=== PATIENT | female | born 1930 | race Caucasian/White ===

== ENCOUNTER 2016-07-01 14:41 | Outpatient (CLI) | payer MEDICARE ==
[2016-07-01 15:12] LABS: Anion Gap 14 mmol/L (10-20); BUN (Urea Nitrogen) 30 mg/dL (9.8-20.1); Calc. Creatinine Clearance 0 mL/min (70-130); Calcium 9.5 mg/dL (7.8-10.44); Carbon Dioxide 28 mmol/L (23-31); Chloride 101 mmol/L (98-107); Estimated GFR-MDRD 24; Glucose 94 mg/dL (83-110); Potassium 4.2 mmol/L (3.5-5.1); Sodium 139 mmol/L (136-145)
== END 2016-07-01 14:42 | disposition home or self-care (01) ==
LOC: MADLABBHPM 14:41
PROVIDERS: ATTEND Family Medicine
DX: N28.9 Disorder of kidney and ureter, unspecified (principal)
CPT/HCPCS: 36415; 80048; 93005; 93010

== ENCOUNTER 2016-07-20 10:18 | Outpatient (CLI) | payer MEDICARE ==
[2016-07-20 10:49] LABS: Anion Gap 13 mmol/L (10-20); BUN (Urea Nitrogen) 25 mg/dL (9.8-20.1); Calc. Creatinine Clearance 0 mL/min (70-130); Calcium 9.1 mg/dL (7.8-10.44); Carbon Dioxide 26 mmol/L (23-31); Chloride 106 mmol/L (98-107); Estimated GFR-MDRD 42; Glucose 86 mg/dL (83-110); Potassium 3.9 mmol/L (3.5-5.1); Sodium 141 mmol/L (136-145)
== END 2016-07-20 10:19 | disposition home or self-care (01) ==
LOC: MADLABBHPM 10:18
PROVIDERS: ATTEND Family Medicine
DX: N28.9 Disorder of kidney and ureter, unspecified (principal)
CPT/HCPCS: 36415; 80048

== ENCOUNTER 2017-06-14 11:42 | Outpatient (CLI) | payer MEDICARE | END 2017-06-14 11:43 | disposition home or self-care (01) | LOC: MADLAB 11:42 | PROVIDERS: ATTEND Specialist | DX: C18.4 Malignant neoplasm of transverse colon (principal) | CPT/HCPCS: 36415; 82378 ==

== ENCOUNTER 2017-07-06 17:14 | Inpatient (IN) | payer MEDICARE ==
[2017-07-06] MEDS ORDERED: HYDROcodone/Acetaminophen 5/325 mg Tablet PO PRN (18:22)
[2017-07-06] MEDS: Mirtazapine 15 MG TAB PO SCH (20:48)
[2017-07-06] MEDS: Ferrous Sulfate 325 MG TAB PO SCH (20:48)
[2017-07-06] MEDS: Apixaban 5 MG TAB PO SCH (20:48)
[2017-07-06] MEDS: Acetaminophen 325 MG TAB PO PRN (20:49)
[2017-07-07] MEDS ORDERED: FLU VACC TS2017-18 (>65YR) 0.5 ML SYRINGE IM ONE (09:00)
[2017-07-07] MEDS: Apixaban 5 MG TAB PO SCH ×2 (09:30→20:05)
[2017-07-07] MEDS: Amlodipine 5 MG TAB PO SCH (09:31)
[2017-07-07] MEDS: Amiodarone 200 MG TAB PO SCH (09:31)
[2017-07-07] MEDS: Fenofibrate Nanocrystallized 145 MG TAB PO SCH (09:31)
[2017-07-07] MEDS: Ferrous Sulfate 325 MG TAB PO SCH ×2 (09:31→20:09)
[2017-07-07] MEDS: Acetaminophen 325 MG TAB PO PRN ×2 (09:36→20:06)
[2017-07-07] MEDS ORDERED: Sodium Chloride Irrig Solution 250 ML BOT ONE (10:03)
--- NOTE | 2017-07-07 11:12 | HP ---
DATE OF ADMISSION: 07/07/2017 ATTENDING PHYSICIAN: Radha Sales D.O. REASON FOR ADMISSION: Physical deconditioning. HISTORY OF PRESENT ILLNESS: This is a pleasant 87-year-old female with history of hypertension, hyperlipidemia, depression, and most recently diagnosed stage 3 adenocarcinoma of the colon that presents to [facility] for planned physical therapy and occupational therapy, status post prolonged hospitalization for her colon cancer. The patient was initially admitted to [facility] on 06/20/[address] Curiel for colectomy after colonoscopy revealed large mass. Patient underwent surgery on the same day of admission. She subsequently suffered numerous post-operative complications. Was found to have peritonitis 2/2 anastamosis leak and went on for repair with abdominal washout and drain placement. This was done under emergent circumstances given the patient's hemodynamic compromise at that time. In addition to her hemodynamic compromise, she was also found to be in acute renal failure with hyperkalemia. Central line was placed intraoperatively , and patient was transferred to the Intensive Care Unit thereafter. She was subsequently found to have traumatic pneumothorax, and Dr. Aldridge was consulted for chest tube placement, which was performed on 06/25/2017. Wound VAC had to be placed to the right upper abdomen where her opening was from the abdominal washout. Over the next few days, patient was able to be extubated and a chest tube was able to be removed. The patient was treated with broad- spectrum IV antibiotics for the peritonitis until bacterial cultures resulted as both yeast as well as Haemophilus parainfluenza. She has completed the recommended course of zosyn and diflucan. From there, the patient stabilized further with return of normal renal function, and she was able to be transferred to the regular medical floor for continued postoperative care and wound care. Additional complication occurred approximately a week ago when the patient went into afib RVR. Dr. Martins was consulted and placed the patient on an amiodarone drip, and the patient was transferred to the telemetry floor. After being on the amiodarone, the patient did spontaneously convert to sinus rhythm, and after discussion with her surgeon, a decision was made to place the patient on anticoagulation with Eliquis. Since approximately Tuesday, the patient has significantly stabilized from a renal and pulmonary standpoint with the exception of persistent pleural effusions on her most recent chest x-ray that was done on 07/05/2017. The patient was cleared for discharge by the smoke tester, the company manager, the hair dryer, and her surgeon, Dr. Curiel , and therefore was transferred here today for planned physical therapy and occupational therapy. The patient was noted prior to transfer to be extremely deconditioned. She has only been ambulating with assistance within the room. She has also had a significant anemia and malnutrition given her above- mentioned complications. She did require TPN at one point, but was successfully weaned off of that over the last few days. Hematology/Oncology was also consulted prior to the patient's discharge, and they recommended IV iron for her persistent iron deficiency anemia as well as outpatient Oncology followup. They did not recommend any further chemoradiation at this time. She was diagnosed with stage 3 colon cancer with 4 positive lymph nodes, but no other obvious signs of metastasis. The patient today states she is very weak. She continues to be short of breath, but unchanged over the last few days. She is requiring 3 liters of oxygen and states she does get some improvement with the nebulized treatments. She is tolerating a diet, although her appetite continues to be decreased. She denies any pain at this time. She has not had any vomiting. She has had good output from her ostomy. Her [id number] is at bedside and assists with some of the history, although the patient is alert and oriented and able to answer questions herself. PAST MEDICAL HISTORY: 1. Stage 3 colon cancer, status post colectomy with above-mentioned complications (anastomosis leak, peritonitis, surgical wound, pneumothorax, respiratory failure, renal failure, anemia, atrial fibrillation) 2. Hypertension. 3. Atrial fibrillation diagnosed during hospitalization 4. Hyperlipidemia. 5. Depression. 6. Iron deficiency anemia. PAST SURGICAL HISTORY: 1. Hemicolectomy with ileostomy 2. Anastomosis repair and abdominal washout. 3. Hysterectomy. 4. Cholecystectomy. 5. Cataract surgery. SOCIAL HISTORY: The patient was previously living independently with her at home, whom she helps take care of. She does not drink alcohol or abuse tobacco. ALLERGIES TO MEDICATIONS: SUCCINYLCHOLINE with history of malignant hyperthermia. MEDICATIONS: Upon transfer: 1. Acetaminophen 650 mg every 6 hours as needed. 2. Hydrocodone 5/325 mg 1-2 tabs as needed for pain. 3. DuoNeb every 6 hours as needed. 4. Amiodarone 200 mg daily. 5. Amlodipine 5 mg once daily. 6. Eliquis 2.5 mg twice daily. 7. TriCor 145 mg once daily. 8. Ferrous sulfate 325 mg twice daily. 9. Remeron 30 mg once nightly. 10. Zofran 4 mg every 6 hours as needed. 11. Protonix 40 mg once daily. 12. Zoloft 100 mg once nightly. REVIEW OF SYSTEMS: As mentioned in the HPI. Positive for weakness, fatigue, and poor appetite. Otherwise, negative. PHYSICAL EXAMINATION: VITAL SIGNS: Upon exam this morning, temperature is 99.6 with T-max of 100.8, blood pressure is 166/70, heart rate is 90, respirations 20, oxygen saturation is 100% on 3 liters. GENERAL: She is alert and oriented x3 in no apparent distress. She has mild dyspnea at rest. She is cooperative and answering questions appropriately. HEENT: Pupils are equally round and reactive to light. Extraocular movements are intact. Sclerae are nonicteric. Oropharynx is mildly dry without any erythema or exudates. NECK: Supple. Negative for carotid bruits. Negative for lymphadenopathy or JVD. The patient does have a left bandage to her neck where her central line had been placed that was removed and wound was noted to be with good hemostasis. No significant bruising or swelling. CARDIOVASCULAR: Heart regular rate and rhythm with no murmurs. LUNGS: Poor effort, auscultation is clear to all lung bowen, somewhat diminished at bilateral bases. No wheezing, rales, or rhonchi. ABDOMEN: Soft, mildly tender diffusely, but nondistended, no rebound or guarding. She has good bowel sounds. She has an ostomy in the right lower quadrant that is draining greenish brown stool. She has a her right upper abdomen wound with 2 openings that has a good granulation tissue and no significant drainage has been photodocumented. She also has a left flank wound where her chest tube is placed that has [address] and has some scant serous drainage, but no erythema. EXTREMITIES: She is noted to be generally weak with some muscle atrophy, but no significant clubbing, cyanosis, or edema. NEUROLOGIC: No focal deficits. PSYCHIATRIC: Her mood is somewhat depressed, but otherwise appropriate. She is alert and oriented x3. LABORATORY DATA AND IMAGING: None to report at this time. ASSESSMENT AND PLAN: This is an 87-year-old female with previous history of hypertension, hyperlipidemia, depression, and recently diagnosed stage 3 colon cancer and has undergone hemicolectomy with numerous complications and prolonged hospitalization. 1. Physical deconditioning. The patient will be seen by physical therapy and occupational therapy with goal of regaining her strength so she can return back to independent living. 2. Colon cancer, stage 3. She is status post hemicolectomy, which was complicated by postoperative anastomotic leak and peritonitis. The patient has had numerous complications, but does appear to be slowly improving. She has a continued wound in her right upper abdomen. A wound VAC will be placed tomorrow. She seems to have cleared the infection in this area after a prolonged course of antibiotics. Her surgeon has mentioned that she can have reversal of her ileostomy in the future, but only when she is up and ambulatory and only if the ileostomy is found to be bothersome. Routine wound care will be continued to the stoma as well. She is not a candidate for any chemoradiation therapy at this time, but will be seen on an outpatient basis by Hematology/Oncology. 3. Iron deficiency anemia. This has been somewhat chronic for the patient even before her surgery, which is what led to her diagnosis of colon cancer. She has received IV iron prior to transfer. Her hemoglobin is at 7. At this time, we will check a.m. labs to see where she is at and only transfuse if she is symptomatic and less than 7. She has been placed on oral iron supplement therapy. 4. History of respiratory failure, pneumothorax, and persistent pleural effusions. The patient will be continued on oxygen as needed as well as breathing treatments. She will need to be monitored closely and will repeat chest x-ray in the morning. Incentive spirometer has been placed to bedside and she has been encouraged to ambulate with assistance. 5. Atrial fibrillation. This is a new diagnosis for patient. She was seen by Dr. Martins last weekend and started on amiodarone. She was deemed to be a candidate for anticoagulation and was started on Eliquis subsequently as well. She is in normal sinus rhythm at this time. We will continue her current management. 6. Hypertension. We will continue the patient on her current blood pressure medication. 7. Depression. We will continue the patient on her current medications. 8. Malnutrition and hypoalbuminemia. Dietary consult has been placed. The patient will likely benefit from protein supplement and encouraged nutritional support. 9. Deep venous thrombosis prophylaxis. The patient is on Eliquis. 10. Gastrointestinal prophylaxis. The patient is on Protonix. 11. Code status. I had a discussion with patient this morning and she does wish to be FULL CODE at this time, but will be discussing this with her family members in the near future. DISPOSITION: The patient is quite ill. She is at advanced age and has had numerous complications over the last 2 weeks. She has a very guarded prognosis at this time, but we will continue to manage her medical conditions as best possible in an effort to get her back home to independent living. COOPER
[2017-07-07] MEDS: Mirtazapine 15 MG TAB PO SCH (20:07)
[2017-07-08 05:58] LABS: Anion Gap 10 mmol/L (10-20); BUN (Urea Nitrogen) 12 mg/dL (9.8-20.1); Calc. Creatinine Clearance 86 mL/min (70-130); Calcium 8.4 mg/dL (7.8-10.44); Carbon Dioxide 25 mmol/L (23-31); Chloride 109 mmol/L (98-107); Estimated GFR-MDRD 80; Glucose 91 mg/dL (83-110); Potassium 3.7 mmol/L (3.5-5.1); Sodium 140 mmol/L (136-145)
[2017-07-08 06:23] LABS: #Basophils 0.1 thou/uL (0.0-0.2); #Eosinphils 0.2 thou/uL (0.0-0.7); #Lymphocytes 1.2 thou/uL (1.20-3.40); #Monocytes 0.4 thou/uL (0.11-0.59); #Neutrophils 5.7 thou/uL (1.40-6.50); %Eosinophils 2.9 % (0.0-10.0); %Lymphocytes 15.7 % (21.0-51.0); %Monocytes 5.1 % (0.0-10.0); %Neutrophils 75.3 % (42.0-75.0); Hemoglobin 7.1 g/dL (12.0-16.0); Mean Corpuscular HGB CONC 30.8 g/dL (32.0-36.0); Mean Corpuscular Hemoglobin 26.7 pg (27.0-31.0); Mean Corpuscular Volume 86.8 fl (81.0-99.0); Mean Platelet Volume 6.8 fL (7.4-10.4); Platelet Count 354 thou/uL (130-400); RBC Distribution Width 23.3 % (11.5-14.5); Red Blood Cell (RBC) Count 2.66 mill/uL (4.20-5.40); White Blood Cell (WBC) Count 7.5 thou/uL (4.8-10.8)
[2017-07-08 06:35] LABS: Anisocytosis SLIGHT = 6-15 cells (100X) (0-5/hpf)
[2017-07-08 06:36] LABS: PLT Morphology Comment Appears Adequate; Poikilocytosis SLIGHT = 6-15 cells (100X) (0-5/hpf)
--- NOTE | 2017-07-08 08:07 | RAD ---
AP VIEW CHEST: Date: 07/08/17 INDICATION: Pleural effusion. COMPARISON: Prior exam dated 07/05/17. FINDINGS: The pulmonary vascular congestion and central edema pattern have improved. Bilateral pleural effusion s have decreased in size, now small. There is bibasilar air space opacity which may reflect atelectas is or pneumonia. No pneumothorax is evident. Vascular structures appear similar. IMPRESSION: 1. Improving CHF. 2. Persistent bibasilar opacities may reflect atelectasis or pneumonia. Continued follow-up is recom mended. POS: [facility]
[2017-07-08] MEDS: Apixaban 5 MG TAB PO SCH ×2 (09:17→20:35)
[2017-07-08] MEDS: Amlodipine 5 MG TAB PO SCH (09:18)
[2017-07-08] MEDS: Amiodarone 200 MG TAB PO SCH (09:19)
[2017-07-08] MEDS: Fenofibrate Nanocrystallized 145 MG TAB PO SCH (09:19)
[2017-07-08] MEDS: Ferrous Sulfate 325 MG TAB PO SCH ×2 (09:19→20:39)
[2017-07-08] MEDS: HYDROcodone/Acetaminophen 5/325 mg Tablet PO PRN ×2 (12:43→18:08)
[2017-07-08] MEDS: Mirtazapine 15 MG TAB PO SCH (20:36)
[2017-07-09] MEDS: Amlodipine 5 MG TAB PO SCH (09:23)
[2017-07-09] MEDS: Apixaban 5 MG TAB PO SCH ×2 (09:24→20:44)
[2017-07-09] MEDS: Amiodarone 200 MG TAB PO SCH (09:24)
[2017-07-09] MEDS: Fenofibrate Nanocrystallized 145 MG TAB PO SCH (09:25)
[2017-07-09] MEDS: Ferrous Sulfate 325 MG TAB PO SCH ×2 (09:26→20:43)
[2017-07-09] MEDS: Mirtazapine 15 MG TAB PO SCH (21:09)
[2017-07-10] MEDS: Amlodipine 5 MG TAB PO SCH (09:14)
[2017-07-10] MEDS: Fenofibrate Nanocrystallized 145 MG TAB PO SCH (09:15)
[2017-07-10] MEDS: Amiodarone 200 MG TAB PO SCH (09:15)
[2017-07-10] MEDS: Apixaban 5 MG TAB PO SCH ×2 (09:15→21:00)
[2017-07-10] MEDS: Ferrous Sulfate 325 MG TAB PO SCH ×2 (09:16→21:01)
[2017-07-10] MEDS: Mirtazapine 15 MG TAB PO SCH (21:00)
[2017-07-11] MEDS: Fenofibrate Nanocrystallized 145 MG TAB PO SCH (09:42)
[2017-07-11] MEDS: Amiodarone 200 MG TAB PO SCH (09:43)
[2017-07-11] MEDS: Ferrous Sulfate 325 MG TAB PO SCH ×2 (09:43→21:10)
[2017-07-11] MEDS: Apixaban 5 MG TAB PO SCH ×2 (09:43→21:04)
[2017-07-11] MEDS: Amlodipine 5 MG TAB PO SCH (09:43)
[2017-07-11] MEDS: HYDROcodone/Acetaminophen 5/325 mg Tablet PO PRN (09:44)
[2017-07-11] MEDS: Acetaminophen 325 MG TAB PO PRN (21:05)
[2017-07-11] MEDS: Mirtazapine 15 MG TAB PO SCH (21:06)
[2017-07-12] MEDS: Acetaminophen 325 MG TAB PO PRN ×2 (04:13→19:58)
[2017-07-12] MEDS: Ferrous Sulfate 325 MG TAB PO SCH ×2 (08:29→19:58)
[2017-07-12] MEDS: Amiodarone 200 MG TAB PO SCH (08:29)
[2017-07-12] MEDS: Fenofibrate Nanocrystallized 145 MG TAB PO SCH (08:29)
[2017-07-12] MEDS: Amlodipine 5 MG TAB PO SCH (08:29)
[2017-07-12] MEDS: Apixaban 5 MG TAB PO SCH ×2 (08:29→20:01)
[2017-07-12] MEDS: Mirtazapine 15 MG TAB PO SCH (20:00)
[2017-07-13] MEDS: Amiodarone 200 MG TAB PO SCH (08:44)
[2017-07-13] MEDS: Apixaban 5 MG TAB PO SCH ×2 (08:44→20:27)
[2017-07-13] MEDS: Fenofibrate Nanocrystallized 145 MG TAB PO SCH (08:44)
[2017-07-13] MEDS: Amlodipine 5 MG TAB PO SCH (08:45)
[2017-07-13] MEDS: Ferrous Sulfate 325 MG TAB PO SCH ×2 (08:45→20:30)
[2017-07-13] MEDS: Acetaminophen 325 MG TAB PO PRN (20:26)
[2017-07-13] MEDS: Mirtazapine 15 MG TAB PO SCH (20:29)
[2017-07-14 05:17] LABS: Hemoglobin 7.8 g/dL (12.0-16.0); Platelet Count 423 thou/uL (130-400)
[2017-07-14] MEDS: Apixaban 5 MG TAB PO SCH ×2 (09:56→20:17)
[2017-07-14] MEDS: Fenofibrate Nanocrystallized 145 MG TAB PO SCH (09:56)
[2017-07-14] MEDS: Ferrous Sulfate 325 MG TAB PO SCH ×2 (09:57→20:18)
[2017-07-14] MEDS: Amiodarone 200 MG TAB PO SCH (09:57)
[2017-07-14] MEDS: Amlodipine 5 MG TAB PO SCH (09:57)
[2017-07-14] MEDS: Ondansetron ODT 4 MG TAB PO PRN (12:00)
[2017-07-14] MEDS: Mirtazapine 15 MG TAB PO SCH (20:17)
[2017-07-15] MEDS: Ferrous Sulfate 325 MG TAB PO SCH ×2 (09:14→17:33)
[2017-07-15] MEDS: Apixaban 5 MG TAB PO SCH ×2 (09:14→20:41)
[2017-07-15] MEDS: Amiodarone 200 MG TAB PO SCH (09:15)
[2017-07-15] MEDS: Amlodipine 5 MG TAB PO SCH (09:15)
[2017-07-15] MEDS: Fenofibrate Nanocrystallized 145 MG TAB PO SCH (09:15)
[2017-07-15] MEDS: Mirtazapine 15 MG TAB PO SCH (20:41)
[2017-07-16] MEDS: Amiodarone 200 MG TAB PO SCH (09:09)
[2017-07-16] MEDS: Amlodipine 5 MG TAB PO SCH (09:09)
[2017-07-16] MEDS: Apixaban 5 MG TAB PO SCH ×2 (09:09→20:52)
[2017-07-16] MEDS: Ferrous Sulfate 325 MG TAB PO SCH ×2 (09:09→17:43)
[2017-07-16] MEDS: Fenofibrate Nanocrystallized 145 MG TAB PO SCH (09:10)
[2017-07-16] MEDS: Mirtazapine 15 MG TAB PO SCH (20:51)
[2017-07-17] MEDS: Amlodipine 5 MG TAB PO SCH (08:29)
[2017-07-17] MEDS: Fenofibrate Nanocrystallized 145 MG TAB PO SCH (08:29)
[2017-07-17] MEDS: Ferrous Sulfate 325 MG TAB PO SCH ×2 (08:30→17:08)
[2017-07-17] MEDS: Apixaban 5 MG TAB PO SCH ×2 (08:30→20:21)
[2017-07-17] MEDS: Amiodarone 200 MG TAB PO SCH (08:31)
[2017-07-17] MEDS: Mirtazapine 15 MG TAB PO SCH (20:21)
[2017-07-18] MEDS: Ferrous Sulfate 325 MG TAB PO SCH ×2 (08:57→17:25)
[2017-07-18] MEDS: Apixaban 5 MG TAB PO SCH ×2 (08:57→20:23)
[2017-07-18] MEDS: Amiodarone 200 MG TAB PO SCH (08:58)
[2017-07-18] MEDS: Fenofibrate Nanocrystallized 145 MG TAB PO SCH (08:58)
[2017-07-18] MEDS: Amlodipine 5 MG TAB PO SCH (08:58)
[2017-07-18] MEDS: Mirtazapine 15 MG TAB PO SCH (20:23)
[2017-07-19] MEDS: Fenofibrate Nanocrystallized 145 MG TAB PO SCH (08:26)
[2017-07-19] MEDS: Apixaban 5 MG TAB PO SCH ×2 (08:26→20:14)
[2017-07-19] MEDS: Amiodarone 200 MG TAB PO SCH (08:27)
[2017-07-19] MEDS: Amlodipine 5 MG TAB PO SCH (08:27)
[2017-07-19] MEDS: Ferrous Sulfate 325 MG TAB PO SCH ×2 (08:27→17:17)
[2017-07-19] MEDS ORDERED: Nystatin Powder 15 GM BOT TOP PRN (19:28)
[2017-07-19] MEDS: Mirtazapine 15 MG TAB PO SCH (20:14)
[2017-07-19] MEDS: Acetaminophen 325 MG TAB PO PRN (21:52)
[2017-07-20] MEDS: Ferrous Sulfate 325 MG TAB PO SCH ×2 (08:49→17:03)
[2017-07-20] MEDS: Amiodarone 200 MG TAB PO SCH (08:49)
[2017-07-20] MEDS: Amlodipine 5 MG TAB PO SCH (08:49)
[2017-07-20] MEDS: Apixaban 5 MG TAB PO SCH ×2 (08:50→20:17)
[2017-07-20] MEDS: Fenofibrate Nanocrystallized 145 MG TAB PO SCH (08:50)
[2017-07-20] MEDS: Mirtazapine 15 MG TAB PO SCH (20:16)
[2017-07-21] MEDS: Amlodipine 5 MG TAB PO SCH (08:13)
[2017-07-21] MEDS: Fenofibrate Nanocrystallized 145 MG TAB PO SCH (08:14)
[2017-07-21] MEDS: Amiodarone 200 MG TAB PO SCH (08:14)
[2017-07-21] MEDS: Ferrous Sulfate 325 MG TAB PO SCH ×2 (08:15→17:09)
[2017-07-21] MEDS: Apixaban 5 MG TAB PO SCH ×2 (08:15→20:08)
[2017-07-21] MEDS: Mirtazapine 15 MG TAB PO SCH (20:10)
[2017-07-22] MEDS: Amiodarone 200 MG TAB PO SCH (08:03)
[2017-07-22] MEDS: Amlodipine 5 MG TAB PO SCH (08:03)
[2017-07-22] MEDS: Apixaban 5 MG TAB PO SCH ×2 (08:03→20:13)
[2017-07-22] MEDS: Ferrous Sulfate 325 MG TAB PO SCH ×2 (08:03→16:08)
[2017-07-22] MEDS: Fenofibrate Nanocrystallized 145 MG TAB PO SCH (08:03)
[2017-07-22] MEDS: Mirtazapine 15 MG TAB PO SCH (20:11)
[2017-07-23] MEDS: Fenofibrate Nanocrystallized 145 MG TAB PO SCH (08:40)
[2017-07-23] MEDS: Amiodarone 200 MG TAB PO SCH (08:40)
[2017-07-23] MEDS: Ferrous Sulfate 325 MG TAB PO SCH ×2 (08:41→17:17)
[2017-07-23] MEDS: Apixaban 5 MG TAB PO SCH ×2 (08:41→20:49)
[2017-07-23] MEDS: Amlodipine 5 MG TAB PO SCH (08:41)
[2017-07-23] MEDS: Mirtazapine 15 MG TAB PO SCH (20:50)
[2017-07-24] MEDS: Fenofibrate Nanocrystallized 145 MG TAB PO SCH (09:02)
[2017-07-24] MEDS: Amiodarone 200 MG TAB PO SCH (09:02)
[2017-07-24] MEDS: Amlodipine 5 MG TAB PO SCH (09:02)
[2017-07-24] MEDS: Apixaban 5 MG TAB PO SCH ×2 (09:02→20:35)
[2017-07-24] MEDS: Ferrous Sulfate 325 MG TAB PO SCH ×2 (09:02→17:06)
[2017-07-24] MEDS: Acetaminophen 325 MG TAB PO PRN (13:08)
[2017-07-24] MEDS: Mirtazapine 15 MG TAB PO SCH (20:35)
[2017-07-25] MEDS: Amlodipine 5 MG TAB PO SCH (08:33)
[2017-07-25] MEDS: Ferrous Sulfate 325 MG TAB PO SCH ×2 (08:33→17:30)
[2017-07-25] MEDS: Amiodarone 200 MG TAB PO SCH (08:33)
[2017-07-25] MEDS: Fenofibrate Nanocrystallized 145 MG TAB PO SCH (08:34)
[2017-07-25] MEDS: Apixaban 5 MG TAB PO SCH ×2 (08:34→20:37)
[2017-07-25] MEDS: Mirtazapine 15 MG TAB PO SCH (20:37)
[2017-07-26 06:01] LABS: ALT (SGPT) Less than 7 U/L (8-55); AST (SGOT) 12 U/L (5-34); Albumin 2.5 g/dL (3.4-4.8); Alkaline Phosphatase 70 U/L (40-150); Anion Gap 13 mmol/L (10-20); BUN (Urea Nitrogen) 16 mg/dL (9.8-20.1); Bilirubin, Total 0.2 mg/dL (0.2-1.2); Calc. Creatinine Clearance 46 mL/min (70-130); Calcium 9.1 mg/dL (7.8-10.44); Carbon Dioxide 21 mmol/L (23-31); Chloride 111 mmol/L (98-107); Estimated GFR-MDRD 48; Globulin 4.2 g/dL (2.4-3.5); Glucose 82 mg/dL (83-110); Potassium 4.5 mmol/L (3.5-5.1); Protein, Total 6.7 g/dL (6.0-8.3); Sodium 140 mmol/L (136-145)
[2017-07-26 06:02] LABS: #Basophils 0.2 thou/uL (0.0-0.2); #Eosinphils 0.2 thou/uL (0.0-0.7); #Lymphocytes 4.2 thou/uL (1.20-3.40); #Neutrophils 4.8 thou/uL (1.40-6.50); %Basophils 1.5 % (0.0-1.0); %Eosinophils 2.3 % (0.0-10.0); %Lymphocytes 40.5 % (21.0-51.0); %Monocytes 9.4 % (0.0-10.0); %Neutrophils 46.3 % (42.0-75.0); Hemoglobin 8.6 g/dL (12.0-16.0); Mean Corpuscular HGB CONC 30.7 g/dL (32.0-36.0); Mean Corpuscular Hemoglobin 26.7 pg (27.0-31.0); Mean Corpuscular Volume 87.1 fl (81.0-99.0); Mean Platelet Volume 6.1 fL (7.4-10.4); Platelet Count 470 thou/uL (130-400); RBC Distribution Width 20.3 % (11.5-14.5); Red Blood Cell (RBC) Count 3.24 mill/uL (4.20-5.40); White Blood Cell (WBC) Count 10.4 thou/uL (4.8-10.8)
[2017-07-26] MEDS: Ferrous Sulfate 325 MG TAB PO SCH ×2 (09:39→17:15)
[2017-07-26] MEDS: Amiodarone 200 MG TAB PO SCH (09:40)
[2017-07-26] MEDS: Apixaban 5 MG TAB PO SCH ×2 (09:40→19:59)
[2017-07-26] MEDS: Amlodipine 5 MG TAB PO SCH (09:40)
[2017-07-26] MEDS: Fenofibrate Nanocrystallized 145 MG TAB PO SCH (09:41)
[2017-07-26] MEDS: Ondansetron ODT 4 MG TAB PO PRN (17:15)
[2017-07-26] MEDS: Mirtazapine 15 MG TAB PO SCH (19:59)
[2017-07-27] MEDS: Amlodipine 5 MG TAB PO SCH (08:06)
[2017-07-27] MEDS: Ferrous Sulfate 325 MG TAB PO SCH ×2 (08:06→17:19)
[2017-07-27] MEDS: Fenofibrate Nanocrystallized 145 MG TAB PO SCH (08:07)
[2017-07-27] MEDS: Apixaban 5 MG TAB PO SCH ×2 (08:07→20:40)
[2017-07-27] MEDS: Amiodarone 200 MG TAB PO SCH (08:07)
[2017-07-27] MEDS: Mirtazapine 15 MG TAB PO SCH (20:40)
[2017-07-28] MEDS: Amiodarone 200 MG TAB PO SCH (09:06)
[2017-07-28] MEDS: Amlodipine 5 MG TAB PO SCH (09:06)
[2017-07-28] MEDS: Apixaban 5 MG TAB PO SCH ×2 (09:06→21:37)
[2017-07-28] MEDS: Fenofibrate Nanocrystallized 145 MG TAB PO SCH (09:06)
[2017-07-28] MEDS: Ferrous Sulfate 325 MG TAB PO SCH ×2 (09:07→17:14)
[2017-07-28] MEDS: Mirtazapine 15 MG TAB PO SCH (21:37)
[2017-07-29] MEDS: Ferrous Sulfate 325 MG TAB PO SCH ×2 (09:15→17:06)
[2017-07-29] MEDS: Apixaban 5 MG TAB PO SCH ×2 (09:15→21:54)
[2017-07-29] MEDS: Fenofibrate Nanocrystallized 145 MG TAB PO SCH (09:15)
[2017-07-29] MEDS: Amlodipine 5 MG TAB PO SCH (09:16)
[2017-07-29] MEDS: Amiodarone 200 MG TAB PO SCH (09:16)
[2017-07-29] MEDS: Mirtazapine 15 MG TAB PO SCH (21:55)
[2017-07-30] MEDS: Fenofibrate Nanocrystallized 145 MG TAB PO SCH (09:28)
[2017-07-30] MEDS: Amlodipine 5 MG TAB PO SCH (09:28)
[2017-07-30] MEDS: Ferrous Sulfate 325 MG TAB PO SCH ×2 (09:28→17:32)
[2017-07-30] MEDS: Apixaban 5 MG TAB PO SCH ×2 (09:28→20:31)
[2017-07-30] MEDS: Amiodarone 200 MG TAB PO SCH (09:28)
[2017-07-30] MEDS: Mirtazapine 15 MG TAB PO SCH (20:31)
[2017-07-31] MEDS: Fenofibrate Nanocrystallized 145 MG TAB PO SCH (08:15)
[2017-07-31] MEDS: Amiodarone 200 MG TAB PO SCH (08:15)
[2017-07-31] MEDS: Amlodipine 5 MG TAB PO SCH (08:15)
[2017-07-31] MEDS: Apixaban 5 MG TAB PO SCH ×2 (08:16→20:34)
[2017-07-31] MEDS: Ferrous Sulfate 325 MG TAB PO SCH ×2 (08:16→17:09)
[2017-07-31] MEDS: Mirtazapine 15 MG TAB PO SCH (20:33)
[2017-08-01] MEDS: Ferrous Sulfate 325 MG TAB PO SCH ×2 (08:44→17:06)
[2017-08-01] MEDS: Amlodipine 5 MG TAB PO SCH (08:44)
[2017-08-01] MEDS: Apixaban 5 MG TAB PO SCH ×2 (08:44→20:25)
[2017-08-01] MEDS: Amiodarone 200 MG TAB PO SCH (08:44)
[2017-08-01] MEDS: Fenofibrate Nanocrystallized 145 MG TAB PO SCH (08:45)
[2017-08-01] MEDS: Mirtazapine 15 MG TAB PO SCH (20:25)
[2017-08-02] MEDS: Acetaminophen 325 MG TAB PO PRN ×2 (00:19→20:29)
[2017-08-02] MEDS: Ondansetron ODT 4 MG TAB PO PRN (02:08)
[2017-08-02] MEDS: Fenofibrate Nanocrystallized 145 MG TAB PO SCH (08:31)
[2017-08-02] MEDS: Ferrous Sulfate 325 MG TAB PO SCH ×2 (08:31→17:16)
[2017-08-02] MEDS: Amlodipine 5 MG TAB PO SCH (08:32)
[2017-08-02] MEDS: Apixaban 5 MG TAB PO SCH ×2 (08:32→20:29)
[2017-08-02] MEDS: Amiodarone 200 MG TAB PO SCH (08:33)
[2017-08-02] MEDS: Mirtazapine 15 MG TAB PO SCH (20:28)
[2017-08-03] MEDS: Amiodarone 200 MG TAB PO SCH (08:30)
[2017-08-03] MEDS: Amlodipine 5 MG TAB PO SCH (08:30)
[2017-08-03] MEDS: Fenofibrate Nanocrystallized 145 MG TAB PO SCH (08:31)
[2017-08-03] MEDS: Apixaban 5 MG TAB PO SCH ×2 (08:31→20:47)
[2017-08-03] MEDS: Ferrous Sulfate 325 MG TAB PO SCH ×2 (08:31→17:00)
[2017-08-03] MEDS: Mirtazapine 15 MG TAB PO SCH (20:49)
[2017-08-04] MEDS: Amlodipine 5 MG TAB PO SCH (08:56)
[2017-08-04] MEDS: Apixaban 5 MG TAB PO SCH ×2 (08:56→20:21)
[2017-08-04] MEDS: Ferrous Sulfate 325 MG TAB PO SCH ×2 (08:57→17:16)
[2017-08-04] MEDS: Amiodarone 200 MG TAB PO SCH (08:57)
[2017-08-04] MEDS: Fenofibrate Nanocrystallized 145 MG TAB PO SCH (08:57)
[2017-08-04] MEDS: Mirtazapine 15 MG TAB PO SCH (20:22)
[2017-08-05] MEDS: Apixaban 5 MG TAB PO SCH ×2 (08:08→21:11)
[2017-08-05] MEDS: Amlodipine 5 MG TAB PO SCH (08:09)
[2017-08-05] MEDS: Fenofibrate Nanocrystallized 145 MG TAB PO SCH (08:09)
[2017-08-05] MEDS: Amiodarone 200 MG TAB PO SCH (08:09)
[2017-08-05] MEDS: Ferrous Sulfate 325 MG TAB PO SCH ×2 (08:09→17:58)
[2017-08-05] MEDS: Mirtazapine 15 MG TAB PO SCH (21:12)
[2017-08-06] MEDS: Ferrous Sulfate 325 MG TAB PO SCH ×2 (08:38→16:58)
[2017-08-06] MEDS: Ondansetron ODT 4 MG TAB PO PRN ×2 (08:38→17:19)
[2017-08-06] MEDS: Apixaban 5 MG TAB PO SCH ×2 (08:39→20:21)
[2017-08-06] MEDS: Fenofibrate Nanocrystallized 145 MG TAB PO SCH (08:39)
[2017-08-06] MEDS: Amlodipine 5 MG TAB PO SCH (08:39)
[2017-08-06] MEDS: Amiodarone 200 MG TAB PO SCH (08:39)
[2017-08-06] MEDS: Mirtazapine 15 MG TAB PO SCH (20:21)
[2017-08-07] MEDS: Amiodarone 200 MG TAB PO SCH (08:46)
[2017-08-07] MEDS: Amlodipine 5 MG TAB PO SCH (08:46)
[2017-08-07] MEDS: Fenofibrate Nanocrystallized 145 MG TAB PO SCH (08:46)
[2017-08-07] MEDS: Apixaban 5 MG TAB PO SCH ×2 (08:46→20:14)
[2017-08-07] MEDS: Ferrous Sulfate 325 MG TAB PO SCH ×2 (08:47→16:55)
[2017-08-07] MEDS: Ondansetron ODT 4 MG TAB PO PRN (12:07)
[2017-08-07] MEDS: Mirtazapine 15 MG TAB PO SCH (20:13)
[2017-08-08] MEDS: Amiodarone 200 MG TAB PO SCH (08:05)
[2017-08-08] MEDS: Fenofibrate Nanocrystallized 145 MG TAB PO SCH (08:05)
[2017-08-08] MEDS: Amlodipine 5 MG TAB PO SCH (08:06)
[2017-08-08] MEDS: Ferrous Sulfate 325 MG TAB PO SCH (08:06)
[2017-08-08] MEDS: Apixaban 5 MG TAB PO SCH ×2 (08:06→20:18)
[2017-08-08] MEDS: Ondansetron ODT 4 MG TAB PO PRN ×3 (08:09→22:30)
[2017-08-08 09:53] LABS: ALT (SGPT) 9 U/L (8-55); AST (SGOT) 19 U/L (5-34); Albumin 3.3 g/dL (3.4-4.8); Alkaline Phosphatase 104 U/L (40-150); Anion Gap 14 mmol/L (10-20); BUN (Urea Nitrogen) 33 mg/dL (9.8-20.1); Bilirubin, Total 0.3 mg/dL (0.2-1.2); Calc. Creatinine Clearance 27 mL/min (70-130); Calcium 10.8 mg/dL (7.8-10.44); Carbon Dioxide 17 mmol/L (23-31); Chloride 109 mmol/L (98-107); Estimated GFR-MDRD 26; Globulin 4.8 g/dL (2.4-3.5); Glucose 137 mg/dL (83-110); Potassium 4.8 mmol/L (3.5-5.1); Protein, Total 8.1 g/dL (6.0-8.3); Sodium 135 mmol/L (136-145)
--- NOTE | 2017-08-08 10:08 | RAD ---
AP ABDOMINAL RADIOGRAPH: DATE: 08/08/17. HISTORY: Nausea and vomiting. COMPARISON: 06/30/17. FINDINGS: There is suboptimal evaluation of the left lung base due to slight patient rotation and mild enlargem ent of the cardiac silhouette. As a result, infiltrate, pleural fluid, and/or atelectasis cannot be excluded. There is mild elevation versus eventration of the right hemidiaphragm. The bowel gas sammie lauryn is nonspecific. Surgical clips overlie the right upper quadrant. Radiopaque suture material ove rlies the right mid abdomen. Degenerative changes are present in the spine. IMPRESSION: 1. Nonspecific bowel gas pattern. 2. Suboptimal evaluation of the left lung base secondary to the mildly enlarged cardiac silhouette a nd overlying soft tissue density. As a result, infiltrate, pleural fluid, and/or atelectasis cannot be excluded. 3. Postsurgical changes right abdomen. Bowel gas pattern is otherwise nonspecific. POS: [facility]
[2017-08-08 10:10] LABS: #Basophils 0.1 thou/uL (0.0-0.2); #Eosinphils 0.5 thou/uL (0.0-0.7); #Lymphocytes 3.1 thou/uL (1.20-3.40); #Monocytes 0.5 thou/uL (0.11-0.59); #Neutrophils 5.4 thou/uL (1.40-6.50); %Basophils 1.2 % (0.0-1.0); %Lymphocytes 32.2 % (21.0-51.0); %Monocytes 5.5 % (0.0-10.0); Hemoglobin 11.4 g/dL (12.0-16.0); Mean Corpuscular HGB CONC 30.3 g/dL (32.0-36.0); Mean Corpuscular Hemoglobin 27.1 pg (27.0-31.0); Mean Corpuscular Volume 89.5 fl (81.0-99.0); Mean Platelet Volume 6.5 fL (7.4-10.4); Platelet Count 560 thou/uL (130-400); RBC Distribution Width 19.2 % (11.5-14.5); White Blood Cell (WBC) Count 9.6 thou/uL (4.8-10.8)
[2017-08-08 10:20] LABS: Anisocytosis SLIGHT = 6-15 cells (100X) (0-5/hpf); Poikilocytosis SLIGHT = 6-15 cells (100X) (0-5/hpf)
[2017-08-08 10:24] LABS: PLT Morphology Comment Appears Increased
[2017-08-08 11:23] LABS: MDiff Complete? YES
[2017-08-08] MEDS: Mirtazapine 15 MG TAB PO SCH (20:16)
[2017-08-09 00:15] VITALS: BMI 24.0
[2017-08-09] MEDS: Amiodarone 200 MG TAB PO SCH (09:05)
[2017-08-09] MEDS: Fenofibrate Nanocrystallized 145 MG TAB PO SCH (09:05)
[2017-08-09] MEDS: Ferrous Sulfate 325 MG TAB PO SCH (09:05)
[2017-08-09] MEDS: Apixaban 5 MG TAB PO SCH ×2 (09:05→20:20)
[2017-08-09] MEDS: Amlodipine 5 MG TAB PO SCH (09:05)
[2017-08-09] MEDS: Mirtazapine 15 MG TAB PO SCH (20:17)
[2017-08-10] MEDS: Amlodipine 5 MG TAB PO SCH (08:02)
[2017-08-10] MEDS: Fenofibrate Nanocrystallized 145 MG TAB PO SCH (08:03)
[2017-08-10] MEDS: Ferrous Sulfate 325 MG TAB PO SCH (08:03)
[2017-08-10] MEDS: Apixaban 5 MG TAB PO SCH ×2 (08:03→19:59)
[2017-08-10] MEDS: Amiodarone 200 MG TAB PO SCH (08:03)
[2017-08-10] MEDS: Ondansetron ODT 4 MG TAB PO PRN (08:30)
[2017-08-10] MEDS: Mirtazapine 15 MG TAB PO SCH (19:59)
[2017-08-11] MEDS: Ferrous Sulfate 325 MG TAB PO SCH (08:12)
[2017-08-11] MEDS: Fenofibrate Nanocrystallized 145 MG TAB PO SCH (08:12)
[2017-08-11] MEDS: Amlodipine 5 MG TAB PO SCH (08:12)
[2017-08-11] MEDS: Amiodarone 200 MG TAB PO SCH (08:12)
[2017-08-11] MEDS: Apixaban 5 MG TAB PO SCH ×2 (08:12→21:13)
[2017-08-11] MEDS: Ondansetron ODT 4 MG TAB PO PRN (08:17)
[2017-08-11] MEDS: Mirtazapine 15 MG TAB PO SCH (21:13)
[2017-08-12] MEDS: Amlodipine 5 MG TAB PO SCH (08:36)
[2017-08-12] MEDS: Ferrous Sulfate 325 MG TAB PO SCH (08:36)
[2017-08-12] MEDS: Apixaban 5 MG TAB PO SCH (08:37)
[2017-08-12] MEDS: Fenofibrate Nanocrystallized 145 MG TAB PO SCH (08:37)
[2017-08-12] MEDS: Amiodarone 200 MG TAB PO SCH (08:37)
[2017-08-12] MEDS: Ondansetron ODT 4 MG TAB PO PRN (08:43)
[2017-08-12 13:34] VITALS: BP 119/59; TEMP 97.9
--- NOTE | 2017-08-12 21:10 | DIS ---
DATE OF ADMISSION: 07/07/2017 DATE OF DISCHARGE: 08/12/2017 FINAL DIAGNOSIS: Physical deconditioning. SECONDARY DIAGNOSES: 1. Stage III adenocarcinoma of the colon, status post right colectomy with ostomy. 2. Postoperative anastomosis leak and peritonitis. 3. Postoperative traumatic pneumothorax. 4. Iron deficiency anemia. 5. Failure to thrive. 6. Hypertension. 7. Atrial fibrillation. 8. Hyperlipidemia. 9. Depression. HOSPITAL COURSE: This is an 87-year-old female that came to [facility] for [facility] physical therapy and occupational therapy, status post prolonged hospitalization for right-side d hemicolectomy and ileostomy for diagnosis of adenocarcinoma of the colon. The patient suffered mul tiple postoperative complications while she was at [facility] that have all since r esolved. The patient initially had a wound VAC for her postop infection and peritonitis that was abl e to be discontinued after sufficient healing of the wound. The patient has been continued on her am iodarone and blood thinner for her diagnosis of atrial fibrillation that also started while she was h ospitalized and has had no further complications for this. Since the patient has been here, she has been participating with physical therapy and occupational therapy and has progressed significantly. She is ambulating with a walker to and from the gym and in the halls without any significant unsteadi ness in her gait or fall since she has been admitted. The patient has had good output from her ostom y and was seen by her surgeon on Tuesday of this week who felt that she was safe to return home. T he main complication since she has been in [place] has been her poor appetite and failure to thr rosibel. She has had approximately 40 pound weight loss since admission. The patient has refused on mul tiple occasions to take any protein supplements or meal supplements. She as well as her surgeon both feels that this will improve once she is discharged. This failure to thrive has been complicated by the recent loss of her of 70 years and she has been going through some depression associated with this. She has been taking her Zoloft and Remeron daily with some improvement. By the day of d ischarge, the patient was ambulating, tolerating a diet with good output from her ostomy. No signs o f infection. The patient is anxious to return home and [facility] has been consulte d and will be following the patient upon discharge, providing ostomy care as well as shelter and physical therapy. DIET: Upon discharge, regular diet with encouraged fluid intake. ACTIVITIES: Upon discharge, she will resume activities as tolerated. FOLLOWUP: The patient will follow up with me in 2 weeks in the clinic as well as Dr. Curiel in 6 we eks and follow up with her manager of pmo, Dr. Martins will be arranged in the interim. MEDICATIONS UPON DISCHARGE: 1. Tylenol 650 every 6 hours as needed. 2. Amiodarone 200 mg daily. 3. Amlodipine 5 mg daily. 4. Eliquis 2.5 mg twice daily. 5. TriCor 145 mg once daily. 6. Remeron 30 mg once nightly. 7. Zofran 4 mg every 6 hours as needed. 8. Pantoprazole 40 mg once daily. 9. Zoloft 100 mg once nightly.
--- NOTE | 2017-08-17 10:11 | PQF ---
[employer] AMARI Mckeon, SOPHIA [id number] CLINICAL DOCUMENTATION CLARIFICATION FORM: POST DISCHARGE Addendum to original discharge summary date: ____ Late entry note date: __ Date: 08/17/2017 ATTN: DR ALY Please exercise your independent, professional judgment in responding to the clarification form. Clinical indicators are provided on the bottom of this form for your review Please check appropriate box(s): [ ] Protein Calorie Malnutrition: [ ] Mild [ x] Moderate [ ] Severe [ ] Other Malnutrition (please specify) __ [ ] Underweight without malnutrition [ ] Cachexia [ ] Other diagnosis __failure to thrive [ ] Unable to determine In addition, please specify: Present on Admission (POA): [ ] Yes [ ] No [ x ] Unable to determine CLINICAL INDICATORS - SIGNS / SYMPTOMS / LABS BMI of __24 Two or More of the Following: Unintentional Insufficient Energy Intake Weight Loss of 40 pounds in a few months deconditioning weakness fatigue poor appetitie RISK FACTORS Change in appetite --appetite loss Inability to consume adequate caloric intake Chronic illness colon cancer TREATMENT: Dietary consult Nutritional supplements Moderate Malnutrition (in acute illness) Energy Intake: <75% of estimated energy requirement for > 7 days Weight Loss: 1-2%/1 week; 5%/ 1 month; 7.5%/3 months Other: mild body fat loss; mild muscle mass loss; mild fluid accumulation; Severe Malnutrition (in acute illness) Energy Intake: < 50% of estimated energy requirement for > 5 days Weight Loss: >1-2%/1 week; >5%/1 month; >7.5%/3 months Other: moderate body fat loss; moderate muscle mass loss; moderate- severe fluid accumulation; measurably reduced emergency room technician strength Moderate Malnutrition (in chronic illness) Energy Intake: <75% of estimated energy requirement for >1 month Weight Loss: 5%/1 month; 7.5%/3 months; 10%/6 months; 20%/1 year Other: mild body fat loss; mild muscle mass loss; mild fluid accumulation Severe Malnutrition (in chronic illness) Energy Intake: <75% of estimated energy requirement for >1 month Weight Loss: >5%/1 month; >7.5%/3 months; >10%/6 months; >20%/1 year Other: severe body fat loss; severe muscle mass loss; severe fluid accumulation; measurably reduced emergency room technician strength (This form is maintained as a part of the permanent medical record) 2014 [employer]. All Rights Reserved [email or web address] [phone] [email or web address]
== END 2017-08-12 13:25 | disposition home health service (06) | DRG 948 ==
LOC: MADMS 17:14
PROVIDERS: ADMIT Family Medicine; ATTEND Family Medicine
DX: R53.1 Weakness (principal); J90 Pleural effusion, not elsewhere classified; E44.0 Moderate protein-calorie malnutrition; E88.09 Other disorders of plasma-protein metabolism, not elsewhere classified; I48.91 Unspecified atrial fibrillation; C18.9 Malignant neoplasm of colon, unspecified; J95.811 Postprocedural pneumothorax; D50.9 Iron deficiency anemia, unspecified; E78.5 Hyperlipidemia, unspecified; F32.9 Major depressive disorder, single episode, unspecified; I10 Essential (primary) hypertension; Z90.49 Acquired absence of other specified parts of digestive tract; Z88.8 Allergy status to other drugs, medicaments and biological substances; Z93.3 Colostomy status; R62.7 Adult failure to thrive; Z68.24 Body mass index [BMI] 24.0-24.9, adult
CPT/HCPCS: 36415; 71045; 74018; 80048; 80053; 82565; 85014; 85018; 85025; 85049; 97602; G8978-GP-CJ; G8978-GP-CM; G8979-GP-CI; G8979-GP-CJ; J7620; Q0162